=== PATIENT | female | born 1965 | race Caucasian/White ===

== ENCOUNTER 2025-05-13 20:30 | Emergency (ER) | payer OTHER ==
[2025-05-13 20:59] LABS: #Basophils Less than 0.03 10x3/uL (0.0-0.2); #Eosinophils 0.12 10x3/uL (0.0-0.7); #Monocytes 0.52 10x3/uL (0.11-0.59); #Neutrophils 1.95 10x3/uL (1.40-6.50); %Basophils 0.5 % (0.0-1.0); %Eosinophils 3.2 % (0.0-10.0); %Lymphocytes 30.3 % (21.0-51.0); %Monocytes 13.8 % (0.0-10.0); %Neutrophils 51.9 % (42.0-75.0); Hematocrit 29.3 % (36.0-47.0); Hemoglobin 9.6 g/dL (12.0-16.0); Mean Corpuscular Hemoglobin 32.0 pg (27.0-31.0); Mean Corpuscular Volume 97.7 fL (78.0-98.0); Platelet Count 315 10x3/uL (130-400); Red Blood Cell (RBC) Count 3.00 mill/uL (4.20-5.40); White Blood Cell (WBC) Count 3.76 10x3/uL (4.8-10.8)
[2025-05-13 21:19] LABS: ALT (SGPT) 20 U/L (Less than 34); AST (SGOT) 26 U/L (11-34); Albumin 3.8 g/dL (3.1-4.5); Alkaline Phosphatase 114 U/L (40-110); Anion Gap 9 mmol/L (10-20); BUN (Urea Nitrogen) 19 mg/dL (9.8-20.1); Bilirubin, Total 0.2 mg/dL (0.3-1.2); Calc. Creatinine Clearance 0 mL/min (70-130); Calcium 8.4 mg/dL (7.8-10.44); Carbon Dioxide 17 mmol/L (23-31); Chloride 115 mmol/L (98-107); Globulin 2.1 g/dL (2.4-3.5); Glucose 84 mg/dL (80-115); Potassium 4.1 mmol/L (3.5-5.1); Sodium 137 mmol/L (136-145)
[2025-05-13] MEDS ORDERED: Orphenadrine Citrate 60 MG/2 ML VIAL ONE (23:45)
[2025-05-13] MEDS ORDERED: HYDROcodone/Acetaminophen 10/325 mg Tablet ONE (23:45)
== END 2025-05-14 01:34 | disposition home or self-care (01) ==
LOC: ERS 20:30
DX: S39.012A Strain of muscle, fascia and tendon of lower back, initial encounter (principal); W19.XXXA Unspecified fall, initial encounter
CPT/HCPCS: 36415; 72128; 72131; 80053; 85025; 96372; J2360; J2919